=== PATIENT | female | born 1990 | race Caucasian/White ===

== ENCOUNTER 2016-08-30 05:47 | Emergency (ER) | payer SELFPAY ==
[2016-08-30 05:53] VITALS: BMI 29.0
[2016-08-30] MEDS ORDERED: NS 1000 ML 1,000 ML ONE (06:08)
[2016-08-30] MEDS ORDERED: NS 1000 ML 1,000 ML IV ONE (06:17)
--- NOTE | 2016-08-30 06:23 | DR.GENAD ---
HPI - PCP Primary Care Physician: nfd - Complaint/Symptoms Chief Complaint:: pt states" marie been throwing up since 2 am and i'v got a headache and lower stomach pains and chest pains" - Source History Provided: Patient - Mode of Arrival Mode of Arrival: Ambulatory - Timing Onset of Chief Complaint: 08/30/16 PMH - PMH Past Medical History: No Past Surgical History: Yes Past Surgical History Comment: tubaligation - Family History History of Family Medical Conditions: No - Social History Type of Tobacco Use: None Does any household member use tobacco: No Alcohol Use: None Do you use any recreational Drugs:: No Lives With: Family Lives Where: Home - infectious screening In the last 2 months have you had wt loss of >10#?: NO Have you had fever, night sweats or hemotysis?: No Have you traveled outside the country in the last 6 months?: No Isolation: Standard ROS - Review of Systems Eyes: No Symptoms Reported ENTM: No Symptoms Reported Respiratoy: No Symptoms Reported Cardiovascular: No Symptoms Reported Gastrointestinal/Abdominal: See HPI, Abdominal Pain, Nausea Genitourinary: No Symptoms Reported Neurological: No Symptoms Reported Musculoskeletal: No Symptoms Reported Integumentary: No Symptoms Reported Hematologic/Lymphatic: No Symptoms Reported Endocrine: No Symptoms Reported Psychiatric: No Symptoms Reported All Other Systems: Reviewed and Negative PE - Vital Signs Vitals: Temperature 99.9 F Pulse Rate 119 Respiratory Rate 18 Blood Pressure 87/62 O2 Sat by Pulse Oximetry 97 - General Limitations: No Limitations General Appearance: Alert, In No Apparent Distress - Head Head Exam: Normal Inspection, Atraumatic - Eyes Eye exam: Normal Appearance, PERRL, EOMI - ENT ENT Exam: Normal Exam External Ear Exam: Normal External Inspection TM/Canal Exam: Bilateral Normal Nose Exam: Normal Nose Exam Mouth Exam: Normal Inspection Throat Exam: Normal Inspection - Neck Neck Exam: Normal Inspection - Respiratory Respiratory Exam: Normal Lung Sounds Bilat Respiratory Exam: Bilateral Clear to Auscultation - Cardiovascular Cardiovascular Exam: Regular Rate - Abdominal Exam Abdominal Exam: Normal Inspection, Normal Bowel Sounds. negative: Distention Abdominal Tenderness: Diffuse - Extremities Extremities Exam: Normal Inspection, Full ROM - Back Back Exam: Normal Inspection, Full ROM - Psychiatric Psychiatric Exam: Normal Affect - Skin Skin Exam: Warm, Dry, Intact Course - Reevaluation 1st: Improved ROR - Labs Reviewed Laboratory Results Reviewed?: Yes (H Pylori positive) Result Diagrams: 08/30/16 06:35 08/30/16 06:35 Laboratory: WBC 4.4 X10^3/uL (3.6-10.0) 08/30/16 06:35 RBC 4.36 X10^6/uL (3.5-5.4) 08/30/16 06:35 Hgb 11.0 g/dL (12.0-16.0) L 08/30/16 06:35 Hct 33.0 % (36.0-47.0) L 08/30/16 06:35 MCV 75.7 fL (80.0-100.0) L 08/30/16 06:35 MCH 25.3 pg (27.0-34.0) L 08/30/16 06:35 MCHC 33.5 g/dL (33.0-35.0) 08/30/16 06:35 RDW 16.5 % (11.6-16.5) 08/30/16 06:35 Plt Count 169 X10^3/uL (150.0-450.0) 08/30/16 06:35 Plt Count Comment Adequate (ADEQUATE) 08/30/16 06:35 MPV 9.0 fL (7.4-11.0) 08/30/16 06:35 Neut % 86.3 % (42.0-75.0) H 08/30/16 06:35 Lymph % 5.4 % (21.0-51.0) L 08/30/16 06:35 Vilas % 6.3 % (0.0-13.0) 08/30/16 06:35 Eos % 1.6 % (0.9-2.9) 08/30/16 06:35 Baso % 0.4 % (0.2-1.0) 08/30/16 06:35 Neut # 3.8 x10^3/uL (2.2-4.8) 08/30/16 06:35 Lymph # 0.2 X10^3/uL (1.3-2.9) L 08/30/16 06:35 Vilas # 0.3 x10^3/uL (0.3-0.8) 08/30/16 06:35 Eos # 0.1 x10^3/uL (0.0-0.2) 08/30/16 06:35 Baso # 0.0 X10^3/uL (0.0-0.1) 08/30/16 06:35 Absolute Nucleated RBC 0.0 /100WBC 08/30/16 06:35 Plt Morphology Comment Normal (NORMAL) 08/30/16 06:35 RBC Morphology Abnormal (NORMAL) A 08/30/16 06:35 Hypochromasia Slight A 08/30/16 06:35 Sodium 139 mmol/L (136-145) 08/30/16 06:35 Corrected Sodium TNP 08/30/16 06:35 Potassium 3.7 mmol/L (3.5-5.1) 08/30/16 06:35 Chloride 104 mmol/L (98-107) 08/30/16 06:35 Carbon Dioxide 26.5 mmol/L (21-32) 08/30/16 06:35 BUN 8 mg/dL (7-18) 08/30/16 06:35 Creatinine 0.72 mg/dL (0.55-1.02) 08/30/16 06:35 Est GFR (MDRD) Af Amer > 60 (>60) 08/30/16 06:35 Est GFR (MDRD) Non-Af > 60 (>60) 08/30/16 06:35 Glucose 97 mg/dL (65-99) 08/30/16 06:35 Calcium 8.0 mg/dL (8.5-10.1) L 08/30/16 06:35 Corrected Calcium 8.7 mg/dL (8.5-10.1) 08/30/16 06:35 Total Bilirubin 0.20 mg/dL (0.2-1.0) 08/30/16 06:35 AST 19 Units/L (15-37) 08/30/16 06:35 ALT 33 Units/L (12-78) 08/30/16 06:35 Alkaline Phosphatase 63 Units/L (46-116) 08/30/16 06:35 Total Protein 6.6 g/dL (6.4-8.2) 08/30/16 06:35 Albumin 3.1 g/dL (3.4-5.0) L 08/30/16 06:35 Globulin 3.5 g/dL (2.5-4.5) 08/30/16 06:35 Albumin/Globulin Ratio 0.9 Ratio (1.1-2.1) L 08/30/16 06:35 Amylase 50 Units/L (25-115) 08/30/16 06:35 Lipase 106 Units/L (73-393) 08/30/16 06:35 H. pylori IgG Antibody Positive (NEGATIVE) A 08/30/16 06:35 - Diagnosis Discharge Problem: Helicobacter pylori gastritis - Discharge Plan Condition: Stable - Follow ups/Referrals Follow ups/Referrals: NFD,None [Primary Care Provider] - 3 days - Instructions
[2016-08-30] MEDS ORDERED: ZOFRAN INJ 4 MG VIAL IVP ONE ×2 (06:24→07:49)
[2016-08-30] MEDS ORDERED: TORADOL 30 MG VIAL IVP ONE (06:24)
[2016-08-30] MEDS ORDERED: ZOFRAN INJ 4 MG VIAL ONE ×2 (06:27→07:50)
[2016-08-30] MEDS ORDERED: TORADOL 30 MG VIAL ONE (06:27)
[2016-08-30 06:55] LABS: BASOPHILS % (AUTO) 0.4 % (0.2-1.0); EOSINOPHILS # (AUTO) 0.1 x10^3/uL (0.0-0.2); EOSINOPHILS % (AUTO) 1.6 % (0.9-2.9); LYMPHOCYTES # (AUTO) 0.2 X10^3/uL (1.3-2.9); LYMPHOCYTES % (AUTO) 5.4 % (21.0-51.0); MEAN CORPUSCULAR HEMOGLOBIN 25.3 pg (27.0-34.0); MEAN CORPUSCULAR HGB CONC 33.5 g/dL (33.0-35.0); MEAN CORPUSCULAR VOLUME 75.7 fL (80.0-100.0); MONOCYTES # (AUTO) 0.3 x10^3/uL (0.3-0.8); MONOCYTES % (AUTO) 6.3 % (0.0-13.0); NEUTROPHILS # (AUTO) 3.8 x10^3/uL (2.2-4.8); NEUTROPHILS % (AUTO) 86.3 % (42.0-75.0); PLATELET COUNT 169 X10^3/uL (150.0-450.0); RED BLOOD COUNT 4.36 X10^6/uL (3.5-5.4); RED CELL DISTRIBUTION WIDTH 16.5 % (11.6-16.5); WHITE BLOOD COUNT 4.4 X10^3/uL (3.6-10.0)
[2016-08-30 07:03] LABS: ALANINE AMINOTRANSFERASE 33 Units/L (12-78); ALBUMIN 3.1 g/dL (3.4-5.0); ALKALINE PHOSPHATASE 63 Units/L (46-116); AMYLASE 50 Units/L (25-115); ASPARTATE AMINO TRANSFERASE 19 Units/L (15-37); BLOOD UREA NITROGEN 8 mg/dL (7-18); CARBON DIOXIDE 26.5 mmol/L (21-32); CHLORIDE 104 mmol/L (98-107); COR CA(FOR HYPOALB) 8.7 mg/dL (8.5-10.1); CREATININE 0.72 mg/dL (0.55-1.02); GLUCOSE 97 mg/dL (65-99); LIPASE 106 Units/L (73-393); SODIUM 139 mmol/L (136-145); TOTAL PROTEIN 6.6 g/dL (6.4-8.2); eGFR BLACK RACES > 60 (>60); eGFR NON BLACK RACES > 60 (>60)
[2016-08-30 07:10] LABS: HYPOCHROMASIA SLIGHT; PLATELET MORPHOLOGY COMMENT NORMAL (NORMAL)
[2016-08-30] MEDS ORDERED: MORPHINE SULFATE INJ 4 MG IVP ONE (07:21)
[2016-08-30] MEDS ORDERED: MORPHINE SULFATE INJ 4 MG ONE (07:22)
[2016-08-30 08:10] VITALS: BP 97/56
== END 2016-08-30 08:10 | disposition home or self-care (01) ==
LOC: ER 05:47
DX: B96.81 Helicobacter pylori [H. pylori] as the cause of diseases classified elsewhere (principal)
CPT/HCPCS: 36415; 80053; 82150; 83690; 85025; 86677; 96365; 96374; 96375; 99283; A4222; J1885; J2270; J2405

== ENCOUNTER 2016-10-05 11:30 | Emergency (ER) | payer SELFPAY ==
[2016-10-05 11:36] VITALS: BP 107/63; BMI 29.3
[2016-10-05] MEDS ORDERED: VALIUM INJ IM ONE (11:42)
--- NOTE | 2016-10-05 11:43 | DR.GENAD ---
HPI - PCP Primary Care Physician: nfd - Complaint/Symptoms Chief Complaint Doctors Comments: Patient fell on yesterday while trying to put on her jeans. She took tylenol for pain on yesterday pain continues. She complains of left flank pain. She denies a history of pain. The quality is shart, severity moderate, duration one day, modifying factors is movement. Chief Complaint:: patient stated she was cleaning her house yesterday and her lower back started hurting. she stated the pain was worse today than yesterday. - Source History Provided: Patient - Mode of Arrival Mode of Arrival: Ambulatory - Timing Onset of Chief Complaint: 10/04/16 PMH - PMH Past Medical History: No Past Surgical History: Yes Surgical History: SCRAP SAWYER Surgery - Family History History of Family Medical Conditions: No - Social History Does patient currently use any type of tobacco product: No Have you used tobacco products in the last 12 months: No Type of Tobacco Use: None Does any household member use tobacco: Yes Alcohol Use: None Do you use any recreational Drugs:: No Lives With: Family Lives Where: Home - infectious screening In the last 2 months have you had wt loss of >10#?: NO Have you had fever, night sweats or hemotysis?: No Have you traveled outside the country in the last 6 months?: No Isolation: Standard ROS - Review of Systems Eyes: No Symptoms Reported ENTM: No Symptoms Reported Respiratoy: No Symptoms Reported Cardiovascular: No Symptoms Reported Gastrointestinal/Abdominal: No Symptoms Reported Genitourinary: No Symptoms Reported Neurological: No Symptoms Reported Musculoskeletal: No Symptoms Reported Integumentary: No Symptoms Reported Hematologic/Lymphatic: No Symptoms Reported Endocrine: No Symptoms Reported Psychiatric: No Symptoms Reported All Other Systems: Reviewed and Negative PE - Vital Signs Vitals: Temperature 98.6 F Pulse Rate 100 Respiratory Rate 18 Blood Pressure [Right Arm] 97/56 Blood Pressure 107/63 O2 Sat by Pulse Oximetry 100 - General Limitations: No Limitations General Appearance: Alert - Head Head Exam: Normal Inspection, Atraumatic - Eyes Eye exam: Normal Appearance, PERRL, EOMI - ENT ENT Exam: Normal Exam TM/Canal Exam: Bilateral Normal Nose Exam: Normal Nose Exam Mouth Exam: Normal Inspection Throat Exam: Normal Inspection - Neck Neck Exam: Normal Inspection, Full ROM - Chest Chest Inspection: Normal Inspection - Respiratory Respiratory Exam: Normal Lung Sounds Bilat Respiratory Exam: Bilateral Clear to Auscultation - Cardiovascular Cardiovascular Exam: Regular Rate, Normal Rhythm - Abdominal Exam Abdominal Exam: Normal Inspection Abdominal Tenderness: negative: RUQ, RLQ, LUQ, LLQ, Epigastrium, Suprapubic, Diffuse, Mild, Moderate, Severe, Other - Extremities Extremities Exam: Normal Inspection, Full ROM - Back Back Exam: (L) CVA Tenderness, Muscle Spasm - Neurologic Neurological Exam: Alert, Oriented X3, CN II-XII Intact - Skin Skin Exam: Warm, Dry, Intact Course - Reevaluation 1st: Improved ("I feel much better") - Diagnosis Discharge Problem: Muscle spasm of back - Discharge Plan Condition: Stable - Follow ups/Referrals Follow ups/Referrals: NFD,None [Primary Care Provider] - 3 days - Instructions
[2016-10-05] MEDS ORDERED: VALIUM INJ ONE (11:44)
== END 2016-10-05 12:31 | disposition home or self-care (01) ==
LOC: ER 11:47
DX: M62.830 Muscle spasm of back (principal)
CPT/HCPCS: 96372; 99281; 99282; J3360

== ENCOUNTER 2016-10-11 17:50 | Emergency (ER) | payer SELFPAY ==
[2016-10-11 17:55] VITALS: BP 133/59; BMI 29.3
[2016-10-11] MEDS ORDERED: ADACEL TDaP IM ONE ×2 (18:12→18:15)
--- NOTE | 2016-10-11 18:15 | DR.LACERAT ---
HPI - Time Seen Time seen: 18:14 - Primary Care Physician Primary Care Physician: NFD - Complaints Chief Complaint:: PT C/O STEPPING ON A GLASS BEER BOTTLE THAT WENT THREW HER SHOE WHILE WALKING.. - Reviewed Nurses Notes Reviewed: Yes - Source History Provided: Patient - Mode of Arrival Mode of Arrival: Wheelchair - Timing Onset of Chief Complaint: 10/11/16 - Context Mechanism: Glass - Severity Pain Severity: Mild Bleeding:: Controlled - Associated Signs and Symptoms Associated Signs and Symptoms: Other (pain) - Other History Other History: 13 weeks EGA PMH - PMH Past Medical History: No Past Surgical History: No Surgical History: [employer] Surgery - Family History History of Family Medical Conditions: No - Social History Does patient currently use any type of tobacco product: Yes Have you used tobacco products in the last 12 months: Yes Type of Tobacco Use: Cigarettes How many years tobacco product used: 13 Does any household member use tobacco: No Alcohol Use: None Do you use any recreational Drugs:: No Lives With: Family Lives Where: Home - infectious screening In the last 2 months have you had wt loss of >10#?: NO Have you had fever, night sweats or hemotysis?: No Have you traveled outside the country in the last 6 months?: No Isolation: Standard ROS - Review of Systems Constitutional: No Symptoms Reported Eyes: No Symptoms Reported ENTM: No Symptoms Reported Respiratoy: No Symptoms Reported Cardiovascular: No Symptoms Reported Gastrointestinal/Abdominal: No Symptoms Reported Genitourinary: No Symptoms Reported Neurological: No Symptoms Reported Musculoskeletal: No Symptoms Reported Integumentary: Wound (1cm cut foot) Hematologic/Lymphatic: No Symptoms Reported Endocrine: No Symptoms Reported Psychiatric: No Symptoms Reported All Other Systems: Reviewed and Negative PE - Vital Signs Vitals: Temperature 97.0 F Pulse Rate 85 Respiratory Rate 22 Blood Pressure [Right Arm] 97/56 Blood Pressure 133/59 O2 Sat by Pulse Oximetry 99 - General Limitations: No Limitations General Appearance: Alert, In No Apparent Distress - Head Head Exam: Normal Inspection - Eyes Eye exam: Normal Appearance, EOMI. negative: Scleral Icterus, Conjunctival Injection - ENT ENT Exam: Normal Exam, Normal Oropharynx - Neck Neck Exam: Normal Inspection, Full ROM, Trachea Midline - Respiratory Respiratory Exam: negative: Accessory Muscle Use, Respiratory Distress - Extremities Extremities Exam: Normal Inspection, Full ROM, Tenderness (at cut) - Back Back Exam: Normal Inspection - Neurologic Neurological Exam: Alert, Oriented X3, CN II-XII Intact - Psychiatric Psychiatric Exam: Normal Mood - Skin Skin Exam: Normal Color. negative: Intact (1cm cut bottom of foot) ROR - XRAY XRAY Interpreted by: Radiologist XRAY Findings: foot: no foreign body - Diagnosis Discharge Problem: Cut of foot - Discharge Plan Condition: Stable Prescriptions: Amoxicillin [AMOXIL CAP 500 MG *] 500 mg PO BID #20 cap Tramadol HCl [ULTRAM 50 MG *] 50 mg PO Q8H PRN #12 tab PRN Reason: Pain - Follow ups/Referrals Follow ups/Referrals: NFD,None [Primary Care Provider] - 3 days - Instructions
[2016-10-11] MEDS ORDERED: KEFLEX CAP 500 MG PO ONE ×2 (18:17→18:19)
--- NOTE | 2016-10-11 19:29 | RAD ---
HISTORY: Stepped on glass bottle. Study: Right foot three views Comparison: None. Findings: There is a dressing overlying the right foot. No other radiopaque foreign body is identified. Specif ically, no glass is appreciated within the soft tissues of the right foot. No acute cortical disrupt ion or dislocation can be identified. No significant soft tissue swelling or injury can be seen. T he visualized portions of the talus and calcaneus are unremarkable. IMPRESSION: 1. Negative exam. No radiopaque foreign body is identified. Reported By:
== END 2016-10-11 19:17 | disposition home or self-care (01) ==
LOC: ER 17:50
PROC: 0YQM0ZZ Repair Right Foot, Open Approach (ICD-10-PCS; principal; 2016-10-11)
DX: S91.311A Laceration without foreign body, right foot, initial encounter (principal); W25.XXXA Contact with sharp glass, initial encounter; Y92.9 Unspecified place or not applicable
CPT/HCPCS: 73630; 90471; 99282; 99283

== ENCOUNTER 2016-10-19 12:50 | Emergency (ER) | payer SELFPAY ==
[2016-10-19 12:54] VITALS: BP 110/63; BMI 29.0
[2016-10-19] MEDS ORDERED: TORADOL 60 MG VIAL IM ONE (13:23)
--- NOTE | 2016-10-19 13:23 | DR.GENAD ---
HPI - PCP Primary Care Physician: AMBER - HPI Comment HPI Comment: WORSE TODAY. NO FEVER. HISTORY DENTAL CARIES. - Complaint/Symptoms Chief Complaint Doctors Comments: TOOTH AND LEFT EAR ACHE TIMES 2 DAYS. Chief Complaint:: PT. C/O TOOTHACHE AND LEFT EARACHE. - Nurses notes reviewed Nurses Notes Review: Yes - Source History Provided: Patient - Mode of Arrival Mode of Arrival: Ambulatory - Timing Onset of Chief Complaint: 10/17/16 Came on: Suddenly - Duration Duration: Constant Duration: Days - Severity Severity: Moderate PMH - PMH Past Medical History: No Past Surgical History: No Surgical History: No History - Family History History of Family Medical Conditions: No - Social History Does patient currently use any type of tobacco product: No Have you used tobacco products in the last 12 months: No Type of Tobacco Use: None Does any household member use tobacco: No Alcohol Use: None Do you use any recreational Drugs:: No Lives With: Spouse Lives Where: Home - infectious screening In the last 2 months have you had wt loss of >10#?: NO Have you had fever, night sweats or hemotysis?: No Have you traveled outside the country in the last 6 months?: No Isolation: Standard ROS - Review of Systems Constitutional: Other (LEFT UPPER AND LOWER MOLAR PAIN WITH RED SWOLLEN GUM. MULTIPLLE DENTAL CARIES.) Eyes: No Symptoms Reported ENTM: Ear Pain. negative: Ear Discharge, Hearing Loss, Nose Discharge, Nose Congestion, Throat Pain Respiratoy: No Symptoms Reported Cardiovascular: No Symptoms Reported Gastrointestinal/Abdominal: No Symptoms Reported Genitourinary: No Symptoms Reported Neurological: No Symptoms Reported Musculoskeletal: No Symptoms Reported Integumentary: No Symptoms Reported Hematologic/Lymphatic: No Symptoms Reported Endocrine: No Symptoms Reported All Other Systems: Reviewed and Negative PE - Vital Signs Vitals: Temperature 97.9 F Pulse Rate 80 Respiratory Rate 17 Blood Pressure [Right Arm] 97/56 Blood Pressure 110/63 O2 Sat by Pulse Oximetry 100 - General Limitations: No Limitations - Head Head Exam: Normal Inspection - Eyes Eye exam: Normal Appearance - ENT ENT Exam: Normal External Ear Exam External Ear Exam: Normal External Inspection. negative: Mastoid Tenderness, Pain with Movement, External Tenderness, Periauricular Adenopathy TM/Canal Exam: Left Bulging, Bilateral Normal Nose Exam: Normal Nose Exam Mouth Exam: Other (LEFT FIRST MOLAR INFLAME AND TENDER BOYH UPPER END LOWER. GUM SWOLLEN AROUND THESE TEETH AND TENDER.) Throat Exam: Normal Inspection - Neck Neck Exam: Normal Inspection - Chest Chest Inspection: Symmetric Chest Wall Rise - Respiratory Respiratory Exam: Normal Lung Sounds Bilat Respiratory Exam: Bilateral Clear to Auscultation - Cardiovascular Cardiovascular Exam: Regular Rate, Normal Rhythm, Normal Heart Sounds - Abdominal Exam Abdominal Exam: Normal Bowel Sounds, Soft. negative: Tenderness - Extremities Extremities Exam: Normal Inspection - Back Back Exam: Normal Inspection - Neurologic Neurological Exam: Alert, Oriented X3 - Psychiatric Psychiatric Exam: Anxious - Skin Skin Exam: Normal Color MDM - Differential Diagnosis Differential Diagnosis: DENTAL PAIN, GINGIVITIS, LEFT EAR ACHE. Course - Treatment Treatment: SEE ORDERS. IM TORADOL IN ED. - Education/Counseling Education/Counseling: Patient, Education Educated On: Treatment, Diagnosis, Needs for Follow Up - Diagnosis Discharge Problem: Pain, dental, Gingivitis, Earache on left - Discharge Plan Condition: Stable Prescriptions: Acetaminophen W/ Codeine [Tylenol/Codeine #3 300-30 mg] 1 tab PO Q4-6H PRN #12 tab PRN Reason: Pain Amoxicillin [Amoxil 875 mg] 875 mg PO BID #20 tab Ibuprofen [MOTRIN TAB 600 MG *] 600 mg PO TID PRN #20 tab PRN Reason: Pain/Inflammation - Follow ups/Referrals Follow ups/Referrals: NFD,None [Primary Care Provider] - 3 days - Instructions Instructions: Dental Pain, Gingivitis, [id number], Earache Additional Instructions: RETURN TO ED IF WORSE. SEE DENTIST OF YOUR CHOICE THIS WEEK.
[2016-10-19] MEDS ORDERED: TORADOL 60 MG VIAL ONE (13:25)
== END 2016-10-19 13:49 | disposition home or self-care (01) ==
LOC: ER 13:01
DX: K05.10 Chronic gingivitis, plaque induced (principal); K08.89 Other specified disorders of teeth and supporting structures; H92.02 Otalgia, left ear
CPT/HCPCS: 96372; 99282; J1885

== ENCOUNTER 2016-12-16 19:28 | Emergency (ER) | payer SELFPAY ==
[2016-12-16 19:38] VITALS: BP 105/62; BMI 29.2
== END 2016-12-16 20:02 | disposition left against medical advice (07) ==
LOC: ER 19:41
DX: R30.9 Painful micturition, unspecified (principal)
CPT/HCPCS: 99281